=== PATIENT | male | born 1950 | race Hispanic/Latino ===

== ENCOUNTER 2023-05-12 10:03 | Emergency (ER) | payer OTHER, MEDICARE ==
[~2023-05-12] VITALS: Ht 170.2 cm; Wt 104.3 kg
[2023-05-12 10:48] LABS: HEMATOCRIT 42.1 % (42-54); MEAN CORPUSCULAR HEMOGLOBIN 30.5 pg (27.0-33.0); MEAN CORPUSCULAR HGB CONC 33.7 g/dL (32.0-36.0); MEAN CORPUSCULAR VOLUME 90.3 fL (79-99); RED BLOOD CELL COUNT(AUTO) 4.66 MIL/uL (4.50-6.20); WHITE BLOOD COUNT (AUTO) 6.8 K/uL (4.8-10.8)
[2023-05-12 11:00] LABS: CREATININE 0.8 mg/dL (0.5-1.5); MAGNESIUM 2.2 mg/dL (1.80-2.40)
[2023-05-12 11:21] VITALS: PULSE 60; RESP 19; O2SAT 96
[2023-05-12] MEDS ORDERED: HYDR50CA50 PO (13:47)
[2023-05-12 14:16] VITALS: BP 133/83
== END 2023-05-12 14:18 | disposition home or self-care (01) ==
LOC: EDH 10:03
DX: I10 Essential (primary) hypertension (principal); F43.9 Reaction to severe stress, unspecified; E11.9 Type 2 diabetes mellitus without complications; E78.00 Pure hypercholesterolemia, unspecified; Z90.49 Acquired absence of other specified parts of digestive tract
CPT/HCPCS: 36415; 80048; 83735; 83880; 84484; 85027; 93005